=== PATIENT | male | born 1975 | race Caucasian/White ===

== ENCOUNTER 2019-05-19 20:05 | Emergency (ER) | payer SELFPAY ==
[2019-05-19] MEDS ORDERED: KETOROLAC TROMETHAMINE 30 MG/1 ML VIAL IVPUSH ONE (20:24)
[2019-05-19] MEDS ORDERED: SODIUM CHLORIDE 1,000 ML IV ONE (20:24)
[2019-05-19] MEDS ORDERED: morphine CARPU-JECT 2 MG/1 ML DISP.SYRIN IVPUSH ONE ×2 (20:24→21:19)
[2019-05-19] MEDS ORDERED: ONDANSETRON 4 MG/2 ML VIAL IVPB ONE (20:24)
[2019-05-19 20:25] VITALS: BP 140/96; PULSE 75; TEMP 98.5; BMI 28.4
[2019-05-19] MEDS ORDERED: KETOROLAC TROMETHAMINE 30 MG/1 ML VIAL ONE (20:27)
[2019-05-19] MEDS ORDERED: ONDANSETRON 4 MG/2 ML VIAL ONE (20:28)
[2019-05-19] MEDS ORDERED: morphine SULFATE 4 MG/ML VIAL ONE ×2 (20:29→21:21)
[2019-05-19 21:11] LABS: BASO % 0.5 % (0-2.0); EOS % 0.7 % (0-4.5); HEMATOCRIT 42.5 % (35.4-49); HEMOGLOBIN 14.3 GM/dl (11.7-16.9); LYMPH % 16.2 % (8-40); MCH 27.9 pg (25.7-33.7); MCHC 33.6 g/dl (32.0-35.9); MEAN CELL VOLUME 83.1 fl (80-96); NEUT % 77.6 % (42.8-82.8); PLATELET COUNT 265 K/MM3 (134-434); RBC 5.11 M/mm3 (4.00-5.60); WHITE BLOOD COUNT 7.6 K/mm3 (4.0-10.8)
[2019-05-19 21:24] LABS: ALBUMIN 4.4 g/dl (3.4-5.0); CALCIUM 9.4 mg/dl (8.5-10); CREATININE 1.1 mg/dl (0.55-1.3); POTASSIUM 4.1 mmol/L (3.5-5.1); TOT PROT 7.4 g/dl (6.4-8.2)
--- NOTE | 2019-05-19 22:01 | PDOC ---
Documentation entered by Sandy Ventura SCRIBE, acting as scribe for Virgil Fisher MD. Virgil Fisher MD: This documentation has been prepared by the Audrey bocanegra Xhesika, SCRIBE, under my direction and personally reviewed by me in its entirety. I confirm that the documentation accurately reflects all work, treatment, procedures, and medical decision making performed by me. History of Present Illness - General Chief Complaint: Pain Stated Complaint: RIGHT FLANK PAIN, VOMITED Time Seen by Provider: 05/19/19 20:19 History Source: Patient Exam Limitations: No Limitations - History of Present Illness Initial Comments: 05/19/19 20:26 The patient is a 43 year old male, with no significant past medical history of who presents to the emergency department with sudden onset of R flank pain 2 hours prior to his arrival. The patient states he endorsed 2 episodes of vomiting secondary to his symptoms. Pt denies any history of kidney stones and gallstones. The patient denies chest pain, shortness of breath, headache or dizziness. The patient denies fever, chills, nausea, diarrhea or constipation. The patient denies dysuria, frequency, urgency or hematuria. PAST MEDICAL HISTORY: no significant history PAST SURGICAL HISTORY: no significant history FAMILY HISTORY: no pertinent history SOCIAL HISTORY: Pt lives with family and is employed. MEDICATIONS: reviewed ALLERGIES: As per nursing notes 05/19/19 21:58 CAT scan showed a 2 mm stone in the right distal ureter with some mild hydronephrosis. Patient feels much better at this time we'll send a prescription for Percocet and Zofran to the pharmacy for the patient patient discharged with urology follow-up. Past History - Past Medical History Allergies/Adverse Reactions: Allergies Allergy/AdvReac Type Severity Reaction Status Date / Time No Known Allergies Allergy Verified 05/19/19 20:17 Home Medications: Ambulatory Orders Ondansetron [Ondansetron Odt] 8 mg PO TID PRN #12 tab.rapdis 05/19/19 Oxycodone HCl/Acetaminophen [Percocet 5-325 mg Tablet] 1 - 2 tab PO Q4H #20 tablet MDD 8 05/19/19 Review of Systems - Review of Systems Able to Perform ROS?: Yes Comments:: 05/19/19 20:27 General: No fevers or chills, no weakness, no weight loss HEENT: No change in vision. No sore throat,. No ear pain CardioVascular: No chest pain or shortness of breath Respiratory:No cough, or wheezing. Gastrointestinal:(+) vomiting. no nausea, diarrhea or constipation, No rectal bleeding Genitourinary: No dysuria, hematuria, or frequency Musculoskeletal:(+) R flank pain. No joint or muscle pain or swelling Neurologic: No headache, vertigo, dizziness or loss of consciousness Psychiatric: nor depression Skin: No rashes or easy bruising Endocrine: no increased thirst or abnormal weight change Allergic: no skin or latex allergy All other systems reviewed and normal *Physical Exam - Vital Signs Last Vital Signs Temp Pulse Resp BP Pulse Ox 98.5 F 75 16 140/96 98 05/19/19 20:17 05/19/19 20:17 05/19/19 20:17 05/19/19 20:17 05/19/19 20:17 - Physical Exam Comments: 05/19/19 20:27 GENERAL: The patient is awake, alert, and fully oriented, in no acute distress. HEAD: Normal with no signs of trauma. EYES: Pupils equal, round and reactive to light, extraocular movements intact, sclera anicteric, conjunctiva clear. Abdomen: Soft, nondistended, normal bowel sounds, nontender to palpation diffusely Flank: (+) R CVA tenderness. (+) R flank pain. EXTREMITIES: Normal range of motion, no edema. NEUROLOGICAL: Normal speech, normal gait. PSYCH: Normal mood, normal affect. SKIN: Warm, Dry, normal turgor, no rashes or lesions noted. ED Treatment Course - LABORATORY CBC & Chemistry Diagram: 05/19/19 20:40 05/19/19 20:40 - ADDITIONAL ORDERS Additional order review: Laboratory Results 05/19/19 05/19/19 20:40 20:20 Sodium 142 Potassium 4.1 Chloride 106 Carbon Dioxide 28 Anion Gap 8 BUN 19.0 H Creatinine 1.1 Est GFR (CKD-EPI)AfAm 94.79 Est GFR (CKD-EPI)NonAf 81.78 Random Glucose 107 H Calcium 9.4 Total Bilirubin 1.0 AST 15 ALT 21 Alkaline Phosphatase 47 Total Protein 7.4 Albumin 4.4 Urine Color Yellow Urine Appearance Cloudy Urine pH 6.5 Urine Protein Negative Urine Glucose (UA) Negative Urine Ketones Negative Urine Blood 3+ H Urine Nitrite Negative Urine Bilirubin Negative Urine Urobilinogen 0.2 Ur Leukocyte Esterase Negative 05/19/19 20:40 RBC 5.11 MCV 83.1 MCHC 33.6 RDW 13.0 MPV 9.0 Neutrophils % 77.6 Lymphocytes % 16.2 Monocytes % 5.0 Eosinophils % 0.7 Basophils % 0.5 - RADIOLOGY Radiology Studies Ordered: Category Date Time Status SPIRAL- RENAL-STONE CT [CT] Stat CT Scan 05/19/19 20:23 Completed - Medications Given in the ED: ED Medications Discontinued Medications Generic Name Dose Route Start Last Admin Trade Name Freq PRN Reason Stop Dose Admin Sodium Chloride 1,000 mls @ 1,000 mls/hr 05/19/19 20:24 05/19/19 20:40 Normal Saline - IV 05/19/19 21:23 1,000 mls/hr .Q1H ONE Administration Ketorolac Tromethamine 30 mg 05/19/19 20:24 05/19/19 20:40 Toradol Injection - IVPUSH 05/19/19 20:25 30 mg ONCE ONE Administration Morphine Sulfate 2 mg 05/19/19 20:24 05/19/19 20:50 Morphine Injection - IVPUSH 05/19/19 20:25 2 mg ONCE ONE Administration Morphine Sulfate 2 mg 05/19/19 21:19 05/19/19 21:25 Morphine Injection - IVPUSH 05/19/19 21:20 2 mg ONCE ONE Administration Ondansetron HCl 8 mg 05/19/19 20:24 05/19/19 20:45 Zofran Injection IVPB 05/19/19 20:25 8 mg ONCE ONE Administration *DC/Admit/Observation/Transfer Diagnosis at time of Disposition: Renal colic on right side - Discharge Dispostion Disposition: HOME Condition at time of disposition: Good Decision to Admit order: No - Prescriptions Prescriptions: Ondansetron [Ondansetron Odt] 8 mg PO TID PRN #12 tab.rapdis PRN Reason: Nausea Oxycodone HCl/Acetaminophen [Percocet 5-325 mg Tablet] 1 - 2 tab PO Q4H #20 tablet MDD 8 - Referrals Referrals: Pankaj Watts MD [Staff Physician] - - Patient Instructions Printed Discharge Instructions: DI for Prescription Opioid Use Additional Instructions: For the pain take ibuprofen or Aleve. If you need something stronger U can take Percocet one tablet as often as every 4-6 hours if needed. Follow-up with the urologist Dr. Watts. Return to the emergency department immediately with ANY new, persistent or worsening symptoms. Continue any medications as previously prescribed by your physician. You should follow up with your primary doctor as soon as possible regarding today's emergency department visit. . Please make sure your doctor reviews the results of your emergency evaluation. Thank you for coming to the Emergency Department today for your care. It was a pleasure to see you today. Please note that your evaluation is INCOMPLETE until you follow-up with your doctor. - Post Discharge Activity
== END 2019-05-19 22:12 | disposition home or self-care (01) ==
LOC: FER 20:05
PROC: 3E0333Z Introduction of Anti-inflammatory into Peripheral Vein, Percutaneous Approach (ICD-10-PCS; principal; 2019-05-19)
PROC: 3E033NZ Introduction of Analgesics, Hypnotics, Sedatives into Peripheral Vein, Percutaneous Approach (ICD-10-PCS; 2019-05-19)
PROC: 3E033GC Introduction of Other Therapeutic Substance into Peripheral Vein, Percutaneous Approach (ICD-10-PCS; 2019-05-19)
PROC: 3E0337Z Introduction of Electrolytic and Water Balance Substance into Peripheral Vein, Percutaneous Approach (ICD-10-PCS; 2019-05-19)
DX: N20.0 Calculus of kidney (principal)
CPT/HCPCS: 36415; 74176-TC; 80053; 81003; 81015; 85025; 99283-25; J7030

== ENCOUNTER 2019-05-26 19:32 | Emergency (ER) | payer SELFPAY ==
[2019-05-26 19:48] VITALS: BP 133/85; PULSE 75; TEMP 97.9; BMI 27.1
[2019-05-26] MEDS ORDERED: predniSONE 20 MG TABLET (UD) PO ONE (19:53)
[2019-05-26] MEDS ORDERED: predniSONE 20 MG TABLET (UD) ONE (19:54)
--- NOTE | 2019-05-26 20:03 | PDOC ---
Documentation entered by Ellie Pierce SCRIBE, acting as scribe for Virgil Fisher MD. Virgil Fisher MD: This documentation has been prepared by the Stan bocangera Brenda, SCRIBE, under my direction and personally reviewed by me in its entirety. I confirm that the documentation accurately reflects all work , treatment, procedures, and medical decision making performed by me. History of Present Illness - General Chief Complaint: Pain Stated Complaint: NUMBNESS TO FACE, TEARING OF LEFT EYE Time Seen by Provider: 05/26/19 19:38 History Source: Patient Exam Limitations: No Limitations - History of Present Illness Initial Comments: 05/26/19 19:53 The patient is a 43 year old male, with no significant PMH who presents to the emergency department with 1 day of right-sided facial numbness and a facial droop. The patient denies chest pain, shortness of breath, headache and dizziness. Denies any GI symptoms. Denies any urinary symptoms. PAST MEDICAL HISTORY: no significant history PAST SURGICAL HISTORY: no significant history FAMILY HISTORY: no pertinent history SOCIAL HISTORY: Pt lives with family and is employed. MEDICATIONS: reviewed ALLERGIES: As per nursing notes 05/26/19 19:56 Assessment and plan: This is a 43-year-old male who comes in complaining of right facial droop. Patient's sedimentation rate was acute onset yesterday. Patient otherwise denies any other neurological complaints or symptoms. 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 Patient given 60 mg of prednisone and a prescription for 60 mg a day for the next week. Patient also given neurology follow-up and discharged home. Past History - Past Medical History Allergies/Adverse Reactions: Allergies Allergy/AdvReac Type Severity Reaction Status Date / Time No Known Allergies Allergy Verified 05/19/19 20:17 Home Medications: Ambulatory Orders Prednisone [Deltasone] 60 mg PO DAILY #21 tablet 05/26/19 COPD: No Other medical history: KIDNEY STONES - Suicide/Smoking/Psychosocial Hx Smoking History: Never smoked Have you smoked in the past 12 months: No Information on smoking cessation initiated: No Hx Alcohol Use: No Drug/Substance Use Hx: No Review of Systems - Review of Systems Able to Perform ROS?: Yes Comments:: 05/26/19 19:53 General: No fevers or chills, no weakness, no weight loss HEENT: No change in vision. No sore throat,. No ear pain CardioVascular: No chest pain or shortness of breath Respiratory:No cough, or wheezing. Gastrointestinal: no nausea, vomiting, diarrhea or constipation, No rectal bleeding Genitourinary: No dysuria, hematuria, or frequency Musculoskeletal: No joint or muscle pain or swelling Neurologic: (+)Right sided facial numbness. (+) Right facial droop. No headache , vertigo, dizziness or loss of consciousness Psychiatric: nor depression Skin: No rashes or easy bruising Endocrine: no increased thirst or abnormal weight change Allergic: no skin or latex allergy All other systems reviewed and normal *Physical Exam - Vital Signs Last Vital Signs Temp Pulse Resp BP Pulse Ox 97.9 F 75 16 133/85 99 05/26/19 19:35 05/26/19 19:35 05/26/19 19:35 05/26/19 19:35 05/26/19 19:35 - Physical Exam Comments: 05/26/19 19:54 General: Well-nourished well-developed individual, no acute distress HEENT: Throat: Normal, tonsils normal, no erythema or exudate Neck: Supple, no meningeal signs, no lymphadenopathy Eyes::Pupils equal reactive and round, extraocular motion intact Chest: Nontender to palpation Cardiac: S1-S2 normal, regular rate and rhythm, no murmurs rubs or gallops Respiratory: Lungs clear to auscultation bilateral Abdomen: Soft, nondistended, normal bowel sounds, nontender to palpation diffusely Extremities: Warm, dry, no cyanosis, clubbing, or edema Skin: No rashes Neuro: (+) Right facial droop with numbness (+)excessive lacrimation of the right eye. Alert and oriented x3, nonfocal exam, grossly intact. Psych: Normal mood and affect *DC/Admit/Observation/Transfer Diagnosis at time of Disposition: Mcintyre's palsy - Discharge Dispostion Disposition: HOME Condition at time of disposition: Stable Decision to Admit order: No - Referrals Referrals: Alphonse Liriano MD [Staff Physician] - - Patient Instructions Printed Discharge Instructions: Mcintyre's Palsy Additional Instructions: Take prednisone 60 mg a day for 1 week. Follow-up with a neurologist call the neurologist's office in the morning to make an appointment. Return to the emergency department immediately with ANY new, persistent or worsening symptoms. Continue any medications as previously prescribed by your physician. You should follow up with your primary doctor as soon as possible regarding today's emergency department visit. . Please make sure your doctor reviews the results of your emergency evaluation. Thank you for coming to the Emergency Department today for your care. It was a pleasure to see you today. Please note that your evaluation is INCOMPLETE until you follow-up with your doctor. - Post Discharge Activity
== END 2019-05-26 20:15 | disposition home or self-care (01) ==
LOC: FER 19:32
DX: G51.0 Bell's palsy (principal)
CPT/HCPCS: 99281-25

== ENCOUNTER 2023-08-15 15:19 | Emergency (ER) | payer OTHER ==
[2023-08-15 16:12] VITALS: BP 123/88; PULSE 71; RESP 18; TEMP 98.4; BMI 28.4
== END 2023-08-15 18:32 | disposition home or self-care (01) ==
LOC: FER 15:19
DX: R10.813 Right lower quadrant abdominal tenderness (principal); R11.0 Nausea; K40.90 Unilateral inguinal hernia, without obstruction or gangrene, not specified as recurrent
CPT/HCPCS: 76870-TC; 81003; 87086; 99284-25